=== PATIENT | female | born 1950 | race Hispanic/Latino ===

== ENCOUNTER 2022-04-11 10:42 | Emergency (ER) | payer BC, OTHER ==
[~2022-04-11] VITALS: Ht 160 cm; Wt 84.4 kg
[2022-04-11 11:10] LABS: BASOPHILS % (AUTO) 0.2 % (0.0-5.0); EOSINOPHILS % (AUTO) 0.9 % (0.0-8.0); HEMATOCRIT 41.3 % (36-48); LYMPHOCYTES % (AUTO) 3.8 % (21.0-51.0); MEAN CORPUSCULAR HEMOGLOBIN 32.5 pg (27.0-33.0); MEAN CORPUSCULAR HGB CONC 33.4 g/dL (32.0-36.0); MEAN CORPUSCULAR VOLUME 97.2 fL (79-99); MONOCYTES % (AUTO) 2.1 % (3.0-13.0); NEUTROPHILS % (AUTO) 92.6 % (40.0-77.0); PLATELET COUNT (AUTO) 182 K/uL (130-400); RED BLOOD CELL COUNT(AUTO) 4.25 MIL/uL (4.00-5.50); RED CELL DISTRIBUTION WIDTH 13.2 % (11.0-15.5); WHITE BLOOD COUNT (AUTO) 13.6 K/uL (4.8-10.8)
[2022-04-11 11:12] LABS: CREATININE 1.4 mg/dL (0.5-1.5); POTASSIUM 4.2 mmol/L (3.5-5.1)
[2022-04-11] MEDS ORDERED: ONDANSETRON 4MG INJ ONE (11:21)
[2022-04-11 11:24] LABS: ALBUMIN 4.3 g/dL (3.5-5.0); TOTAL PROTEIN, SERUM 8.5 g/dL (6.0-8.3)
[2022-04-11] MEDS ORDERED: ONDANSETRON 4MG INJ IVP ONE (11:30)
[2022-04-11 11:32] LABS: APPEARANCE,URINE CLEAR (CLEAR); BILIRUBIN,URINE NEGATIVE (NEGATIVE); COLOR,URINE LIGHT-YELLOW (YELLOW); GLUCOSE, URINE (UA) NEGATIVE (NEGATIVE); KETONES,URINE NEGATIVE (NEGATIVE); LEUKOCYTE ESTERASE ,URINE 500 Leu/uL (NEGATIVE); NITRATE,URINE NEGATIVE (NEGATIVE); OCCULT BLOOD,URINE MODERATE (NEGATIVE); PROTEIN,URINE NEGATIVE (NEGATIVE); UROBILINOGEN,URINE 0.2 mg/dL (0.2-1.0)
[2022-04-11 11:41] LABS: MUCUS,URINE RARE LPF (None Seen); OTHER CASTS, URINE 1 /LPF (None Seen); SQUAMOUS EPITHELIAL CELL,UR MOD /HPF (0-2)
[2022-04-11 11:53] LABS: BACTERIA,URINE Moderate /HPF (None Seen)
[2022-04-11] MEDS ORDERED: OMEP40CA21 PO (12:08)
[2022-04-11] MEDS ORDERED: CEFU500T67 PO (12:08)
[2022-04-11] MEDS ORDERED: ONDA-104 PO (12:08)
[2022-04-11 12:30] VITALS: BP 125/50
== END 2022-04-11 12:35 | disposition home or self-care (01) ==
LOC: EDH 10:42
DX: N39.0 Urinary tract infection, site not specified (principal); R11.2 Nausea with vomiting, unspecified; Z90.49 Acquired absence of other specified parts of digestive tract
CPT/HCPCS: 99284; 96374; 84484; 80053; 83690; 85025; 87040 ×2; 87088; 81001; 36415; 93005; J2405

== ENCOUNTER 2023-11-05 20:41 | Emergency (ER) | payer OTHER ==
[~2023-11-05] VITALS: Ht 160 cm; Wt 85.3 kg
[~2023-11-05 20:41] MED LIST: CEFU500T67 PO; OMEP40CA21 PO; ONDA-104 PO
[2023-11-05 21:58] VITALS: BP 142/61; PULSE 73; RESP 16; TEMP 98.3; O2SAT 98
[2023-11-05] MEDS: ketOROlac 60 MG VIAL (30MG/ML) IM ONE (22:42)
== END 2023-11-05 23:04 | disposition home or self-care (01) ==
LOC: EDH 20:41
DX: S80.211A Abrasion, right knee, initial encounter (principal); E78.00 Pure hypercholesterolemia, unspecified; I10 Essential (primary) hypertension; E66.01 Morbid (severe) obesity due to excess calories; Z85.3 Personal history of malignant neoplasm of breast; Z79.899 Other long term (current) drug therapy; Z79.2 Long term (current) use of antibiotics; Z90.710 Acquired absence of both cervix and uterus; Z98.890 Other specified postprocedural states; Z90.49 Acquired absence of other specified parts of digestive tract; Z68.30 Body mass index [BMI] 30.0-30.9, adult; W18.39XA Other fall on same level, initial encounter; Y93.01 Activity, walking, marching and hiking; Y92.89 Other specified places as the place of occurrence of the external cause; Y99.8 Other external cause status
CPT/HCPCS: 99284; 73080; 73564; 96372; J1885